=== PATIENT | male | born 1995 | race African-American/Black ===

== ENCOUNTER 2024-07-16 19:20 | Emergency (ER) | payer OTHER, SELFPAY ==
[2024-07-16 19:24] VITALS: BP 152/81
--- NOTE | 2024-07-16 19:48 | ED.GENMED ---
History of Present Illness
General
Chief Complaint: Back Pain
Source: patient
Exam Limitations: none
Time Seen by Provider: 07/16/24 19:38
History of Present Illness
History of Present Illness:
29-year-old healthy male with mild low back pain this morning upon wakening. He said he normally does not sleep on his back but slept that way overnight. However late this afternoon he lifted a box with stabbing sharp lower back pain. Mostly
midline in nature. Positional. Worse with twisting turning bending. No numbness tingling or weakness. No abdominal pain. No bladder issues. No infectious issues. Patient took Tylenol at home. Patient states as a child he took Motrin and had
some swelling of his feet. However he has had Motrin multiple times since then without issues.
Past History
Past History
ED Past Medical History: None
ED Past Surgical History: None
Review of Systems
Review of Systems
All Other Systems: Not applicable
Constitutional: Denies fever or chills
Cardiac: Reports no symptoms
ABD/GI: Reports no symptoms
Neurological: Reports no symptoms
Phy Exam
Physical Exam
Physical Exam:
GENERAL: Alert and oriented in no apparent distress. Lying flat in the bed. Nontoxic
EYE: Orbits normal.
NECK: Supple
CARDIAC: Regular rate and rhythm without any obvious murmurs.
LUNGS: Clear breath sounds,normal
ABDOMEN: Soft, without focal tenderness or distention. No pulsatile mass
NEUROLOGICAL: Alert and oriented , grossly non-focal
SKIN: Warm and dry, no rash or lesion, no discoloration, skin intact.
MUSCULOSKELETAL: No edema,no deformity.Good color. Some pain in the lower back with left straight leg raising. However no shooting pain down the leg. Good plantar and dorsiflexion of the feet. Good sensation distally. Good color distally.
Patient winced with the active sitting up. Also has some spasm with standing. Increased discomfort with flexion at the hip. However able to ambulate without difficulty.
PSYCH: Normal and appropriate interaction.
Course
Orders/Labs/Results
Orders:
Orders
07/16/24 19:46
Cyclobenzaprine HCl [Flexeril] 10 mg PO NOW STA
07/16/24 19:48
Ketorolac [Toradol] 60 mg IM NOW STA
Vital Signs
Initial and Last Documented VS:
Initial Vital Signs
Temp Pulse Resp BP Pulse Ox
98.1 F 76 19 152/81 99
07/16/24 19:24 11 19:24 07/16/24 19:24 07/16/24 19:24 07/16/24 19:24
Last Documented Vital Signs
Temp Pulse Resp BP Pulse Ox
98.1 F 76 19 152/81 99
07/16/24 19:24 07/16/24 19:24 07/16/24 19:24 07/16/24 19:24 07/16/24 19:24
MDM/Problems Addressed
Differential Diagnosis Includes:
Clinically this is musculoskeletal in nature. Not describing any kidney stone vascular issue abdominal issue etc. He has got no acute neurologic component to this. He has taken Motrin in the past without difficulties. Only had a questionable
issue as a child but has taken it since then. Will add a muscle relaxer warm heat and follow-up. No indication for radiologic testing.
*Pulse Oximetry
Patient hypoxic: no
*Critical Care Note
Total Time (30-74mins, 75-104mins- exclusive of procedures): Not Applicable
ED Attending Note
-
Portions of this chart may have been created with voice recognition software.� Occasional wrong word or��sound alike� substitutions may have occurred due to the inherent limitations of voice recognition software.
Discharge Plan
Departure
Patient Disposition: Home (Routine Discharge)
Date of Disposition: 07/16/24
Time of Disposition: 19:51
Patient with high blood pressure during this ER visit?: Yes
Discharge Problem:
Low back strain
Instructions: Low Back Pain (DC), BLOOD PRESSURE
Prescriptions:
New
cyclobenzaprine 10 mg tablet
10 mg PO Q8H PRN (Reason: muscle slasm) Qty: 14 0RF
Activity Restrictions/Additional Instructions:
Advil Motrin or Aleve for pain.
You can also add Tylenol to this regimen.
Flexeril is a muscle relaxer. This was called to your pharmacy.
Warm heat or ice. Whichever feels better. I typically find warm heat feels better
Recheck with increased pain abdominal pain distal numbness tingling weakness or if symptoms or not improving in 2 to 3 days
Discharge Date and Time
Print Language: CYMRO
[2024-07-16] MEDS: TORADOL 60 MG IM (20:26)
[2024-07-16 20:37] VITALS: BP 131/71
[2024-07-16] MEDS: FLEXERIL 10 MG PO (21:07)
[2024-07-16 21:08] VITALS: BP 110/54
== END 2024-07-16 21:10 | disposition home or self-care (01) ==
LOC: EMR 19:20
PROVIDERS: EMERGENCY PHYSICIAN Emergency Medicine
DX: S39.012A Strain of muscle, fascia and tendon of lower back, initial encounter (principal); X58.XXXA Exposure to other specified factors, initial encounter
CPT/HCPCS: 96372; 99284